=== PATIENT | female | born 1975 | race Caucasian/White ===

== ENCOUNTER 2017-05-17 15:27 | Emergency (ER) | payer MEDICAID ==
[~2017-05-17] VITALS: Ht 160 cm; Wt 115.5 kg
[~2017-05-17 15:27] MED LIST: ACYCLOVIR800 MG PO; BACTRIM DS1 TAB PO; IMITREX25 MG PO; LEVOTHYROXIN50 MCG; LEVOTHYROXIN50 MCG PO; LORTAB 10-325 M1 TAB PO; LORTAB5 PO; MEDDOSEPAK PO; NAPROSYN500 MG PO; NO; NO HOME MEDS; PENICILLN VK500 MG PO; PERCOCET 5/325M1 TAB PO; PHENERGAN25 MG/TAB PO; ULTRAM50 MG PO
[2017-05-17] MEDS ORDERED: NAPROSYN500 MG PO (17:05)
[2017-05-17 17:12] VITALS: BP 121/79
== END 2017-05-17 17:12 | disposition home or self-care (01) | DRG 563 ==
LOC: ED 15:27
DX: S53.401A Unspecified sprain of right elbow, initial encounter (principal); X50.0XXA Overexertion from strenuous movement or load, initial encounter; Y93.H9 Activity, other involving exterior property and land maintenance, building and construction; Y92.007 Garden or yard of unspecified non-institutional (private) residence as the place of occurrence of the external cause

== ENCOUNTER 2017-09-11 18:12 | Emergency (ER) | payer MEDICAID ==
[~2017-09-11] VITALS: Ht 160 cm; Wt 115.0 kg
[2017-09-11 19:09] LABS: HEMATOCRIT 43.6 % (37.0-47.0); HEMOGLOBIN 14.6 g/dl (12.0-16.0); IMMATURE GRANULOCYTES 0.4 % (0.0-1.0); MEAN CELL VOLUME 95.6 fL CALC (80.0-100.0); MEAN CORPUSCULAR HGB CONC 33.5 g/L CALC (32.0-36.0); NEUT# 4.89 thou/uL (2.00-7.15); RED BLOOD COUNT 4.56 mill/uL (4.20-5.60); RED CELL DISTRI WIDTH 12.8 % (11.5-15.5)
[2017-09-11 19:30] LABS: ANION GAP 16 (6-22 (CALC)); BUN 16 mg/dL (7-17); BUN/CREATININE RATIO 25 (12-20 (CALC)); CALCIUM 9.4 mg/dL (8.4-10.2); CARBON DIOXIDE 23 mmol/l (22-30); CHLORIDE 107 mmol/l (95-108); CREATININE 0.6 mg/dL (0.5-1.0); GFR > 60 ML/MIN (>=60 (CALC)); GFR FOR AFR.AMER. > 60 ML/MIN (>=60 (CALC)); GLUCOSE 125 mg/dL (65-105); POTASSIUM 4.1 mmol/l (3.5-5.1); SODIUM 142 mmol/l (137-146)
[2017-09-11] MEDS ORDERED: MOTRIN400 MG PO (22:10)
[2017-09-11 22:32] VITALS: BP 150/82
== END 2017-09-11 22:32 | disposition home or self-care (01) | DRG 607 ==
LOC: ED 18:12
PROVIDERS: Family Medicine
DX: R22.0 Localized swelling, mass and lump, head (principal); H53.9 Unspecified visual disturbance; H57.11 Ocular pain, right eye; R50.9 Fever, unspecified; Y04.2XXA Assault by strike against or bumped into by another person, initial encounter; Y92.89 Other specified places as the place of occurrence of the external cause
CPT/HCPCS: Q9967

== ENCOUNTER 2018-12-28 19:01 | Emergency (ER) | payer OTHER ==
[~2018-12-28] VITALS: Ht 160 cm; Wt 122.0 kg
[~2018-12-28 19:01] MED LIST changes: +MOTRIN400 MG PO
[2018-12-28] MEDS ORDERED: METFORMIN500 MG PO (19:15)
[2018-12-28 20:02] LABS: HEMATOCRIT 42.2 % (37.0-47.0); HEMOGLOBIN 14.1 g/dl (12.0-16.0); IMMATURE GRANULOCYTES 0.6 % (0.0-5.0); MEAN CELL VOLUME 94.2 fL CALC (80.0-100.0); MEAN CORPUSCULAR HGB 31.5 pG CALC (26.0-32.0); MEAN CORPUSCULAR HGB CONC 33.4 g/L CALC (32.0-36.0); NEUT# 9.4 thou/uL (2.00-7.15); RED BLOOD COUNT 4.48 mill/uL (4.20-5.60); RED CELL DISTRI WIDTH 12.9 % (11.5-15.5)
[2018-12-28 20:08] LABS: ANION GAP 14 (6-22 (CALC)); BUN 13 mg/dL (7-17); BUN/CREATININE RATIO 31 (12-20 (CALC)); CARBON DIOXIDE 19 mmol/l (22-30); CHLORIDE 108 mmol/l (95-108); CREATININE 0.4 mg/dL (0.5-1.0); GFR > 60 ML/MIN (>=60 (CALC)); GFR FOR AFR.AMER. > 60 ML/MIN (>=60 (CALC)); POTASSIUM 4.4 mmol/l (3.5-5.1); SODIUM 136 mmol/l (137-146)
[2018-12-28] MEDS ORDERED: BACTRIM DS1 TAB PO (20:46)
[2018-12-28] MEDS ORDERED: KEFLEX500 M1 PO (20:46)
[2018-12-28] MEDS ORDERED: VOLTAREN - GENE75 MG PO (20:46)
[2018-12-28] MEDS ORDERED: TRAMADOL HCL50 MG PO (20:46)
[2018-12-28 21:00] VITALS: BP 139/74
== END 2018-12-28 21:00 | disposition home or self-care (01) ==
LOC: ED 19:01
PROVIDERS: Family Medicine
DX: L03.114 Cellulitis of left upper limb (principal); E11.9 Type 2 diabetes mellitus without complications; F17.210 Nicotine dependence, cigarettes, uncomplicated

== ENCOUNTER 2019-08-04 16:05 | Emergency (ER) | payer OTHER ==
[~2019-08-04] VITALS: Ht 160 cm; Wt 120.5 kg
[~2019-08-04 16:05] MED LIST changes: +KEFLEX500 M1 PO; +METFORMIN500 MG PO; +TRAMADOL HCL50 MG PO; +VOLTAREN - GENE75 MG PO
[2019-08-04] MEDS ORDERED: PRAVASTATIN40 MG PO (18:02)
[2019-08-04] MEDS ORDERED: SERTRALINE50 MG PO (18:02)
[2019-08-04] MEDS ORDERED: HYDROXYZ HCL25 MG PO (18:03)
[2019-08-04] MEDS ORDERED: TESSALON PERLE100 MG PO (18:06)
[2019-08-04 18:15] VITALS: BP 141/79
== END 2019-08-04 18:15 | disposition home or self-care (01) ==
LOC: ED 16:05
DX: R09.81 Nasal congestion (principal); H92.01 Otalgia, right ear; R05 Cough; E11.9 Type 2 diabetes mellitus without complications; F17.210 Nicotine dependence, cigarettes, uncomplicated; Z79.84 Long term (current) use of oral hypoglycemic drugs

== ENCOUNTER 2019-11-23 12:36 | Observation (INO) | payer SELFPAY ==
[~2019-11-23] VITALS: Ht 160 cm; Wt 116.0 kg
[~2019-11-23 12:36] MED LIST changes: +HYDROXYZ HCL25 MG PO; +PRAVASTATIN40 MG PO; +SERTRALINE50 MG PO; +TESSALON PERLE100 MG PO
--- NOTE | 2019-11-23 12:58 | NUR ---
PT TO ROOM FOR EXAM
--- NOTE | 2019-11-23 13:00 | NUR ---
PT ASSESSED. PT REPORT RECTAL ABCESS GETTING WORSE TODAY. PT STANDING AND PACING DUE TO PAIN CAUSED BY SITTING. PT AO X 3. SKIN PINK WARM AND DRY. NO CARDIAC OR RESPIRATORY COMPLAINTS.
[2019-11-23 13:24] LABS: HEMATOCRIT 42.7 % (37.0-47.0); HEMOGLOBIN 13.9 g/dl (12.0-16.0); IMMATURE GRANULOCYTES 0.7 % (0.0-5.0); MEAN CELL VOLUME 85.4 fL CALC (80.0-100.0); MEAN CORPUSCULAR HGB 27.8 pG CALC (26.0-32.0); MEAN CORPUSCULAR HGB CONC 32.6 g/dL CAL (32.0-36.0); NEUT# 9.77 thou/uL (2.00-7.15); RED CELL DISTRI WIDTH 11.9 % (11.5-15.5)
[2019-11-23 13:37] LABS: ALBUMIN 4.5 g/dL (3.2-5.0); ANION GAP 19 (6-22 (CALC)); BILIRUBIN, TOTAL 0.8 mg/dL (0.0-1.4); BUN 12 mg/dL (7-17); BUN/CREATININE RATIO 26 (12-20 (CALC)); CARBON DIOXIDE 21 mmol/l (22-30); CHLORIDE 101 mmol/l (95-108); CREATININE 0.4 mg/dL (0.5-1.0); GFR > 60 ML/MIN (>=60 (CALC)); GFR FOR AFR.AMER. > 60 ML/MIN (>=60 (CALC)); SGOT/AST 32 u/l (14-36); SODIUM 137 mmol/l (137-146); TOTAL PROTEIN 7.9 g/dL (6.3-8.2)
[2019-11-23 13:51] LABS: ALKALINE PHOSPHATASE 111 u/l (38-126)
--- NOTE | 2019-11-23 14:03 | NUR ---
PT MEDICATED FOR PAIN. TAKEN VIA WHEELCHAIR TO XRAY
--- NOTE | 2019-11-23 14:18 | NUR ---
REPORT GIVEN TO TAM SIBLEY. MED SURG
--- NOTE | 2019-11-23 14:25 | NUR ---
PT TRANSPORTED VIA STRETCHER TO MED SURG. ANTIBIOTIC INFUSING
[2019-11-23 15:28] VITALS: BP 139/63
--- NOTE | 2019-11-23 19:19 | NUR ---
REPORT FROM TAM SIBLEY. PT NOTED LAYING ON LEFT SIDE IN BED. NO APPARENT DISTRESS NOTED. PT ALERT AND ORIENTED. PT C/O PERIRECTAL PAIN, PT JUST MEDICATED AND HEAT PACK PROVIDED PRIOR TO SHIFT CHANGE. DISCUSSED POC AND NPO AFTER MIDNIGHT. PT VERBALIZED UNDERSTANDING. IV SITE APPEARS HEALTHY. PT DENIES ANY CURRENT WANTS OR NEEDS. CALL LIGHT WITHIN REACH. WILL CONTINUE TO MONITOR.
--- NOTE | 2019-11-23 20:10 | NUR ---
PT C/O SHARP PAIN IN RECTAL AREA 9-10 AND 10-10 WITH MOVEMENT. PT IS TEARFUL AND CRYING. NO RELIEF FROM APAP, REPOSITIONING, COLD, OR WARM PACKS. ANUS ASSESSED, NO APPARENT OPENING NOTED, EDEMA AND SEROUS DRAINAGE NOTED. EQUIPMENT CLEANER PHYSICIAN NOTIFIED AND ORDERS RECEIVED FOR TORADOL 15MG Q6H PRN FOR BREAKTHROUGH PAIN AND CONTINUE WITH PRN MORPHINE ORDERED. INFORMED PT, WILL MEDICATED WHEN MEDICATION PROFILED AND CONTINUE TO MONITOR.
--- NOTE | 2019-11-23 21:17 | NUR ---
PT RESTING IN BED, APPEARS MORE RELAXED AND COMFORTABLE NOW. PT STATES PAIN 7-10. SNACK PROVIDED UPON REQUEST. CALL LIGHT WITHIN REACH. WILL CONTINUE TO MONITOR.
[2019-11-24] VITALS (12 sets, daily range): BP systolic 117–155; BP diastolic 60–94
--- NOTE | 2019-11-24 00:40 | NUR ---
PT RESTING IN BED ON RIGHT SIDE. PT STATES PAIN 9-10 IN RECTAL AREA. ASSISTED PT UP TO USE BATHROOM PT VOIDED 300 ML DARK YELLOW URINE. AMBULATED TO BATHROMM WITH STEADY GAIT. MEDICATED WITH PO APAP AT THIS TIME AND ICE PACK PROVIDED. PT DENIES ANY OTHER WANTS OR NEEDS. DISCUSSED PAIN MEDICATIONS AVAILABLE DUE TIMES. PT VERBALIZED UNDERSTANDING. CALL LIGHT WITHIN REACH. WILL CONTINUE TO MONITOR.
--- NOTE | 2019-11-24 03:06 | NUR ---
PT RESTING IN BED, LAYING ON LEFT SIDE. NO APPARENT DISTRESS NOTED. CALL LIGHT WITHIN REACH. WILL CONTINUE TO MONITOR.
[2019-11-24 04:43] LABS: IMMATURE GRANULOCYTES 0.6 % (0.0-5.0); MEAN CELL VOLUME 86.1 fL CALC (80.0-100.0); MEAN CORPUSCULAR HGB 27.3 pG CALC (26.0-32.0); MEAN CORPUSCULAR HGB CONC 31.7 g/dL CAL (32.0-36.0); NEUT# 6.74 thou/uL (2.00-7.15); RED BLOOD COUNT 4.1 mill/uL (4.20-5.60); RED CELL DISTRI WIDTH 11.9 % (11.5-15.5)
[2019-11-24 04:45] LABS: HEMATOCRIT 35.3 % (37.0-47.0); HEMOGLOBIN 11.2 g/dl (12.0-16.0)
[2019-11-24 04:49] LABS: ANION GAP 10 (6-22 (CALC)); BUN 12 mg/dL (7-17); BUN/CREATININE RATIO 31 (12-20 (CALC)); CARBON DIOXIDE 21 mmol/l (22-30); CHLORIDE 106 mmol/l (95-108); CREATININE 0.4 mg/dL (0.5-1.0); GFR > 60 ML/MIN (>=60 (CALC)); GFR FOR AFR.AMER. > 60 ML/MIN (>=60 (CALC)); POTASSIUM 3.7 mmol/l (3.5-5.1); SODIUM 134 mmol/l (137-146)
--- NOTE | 2019-11-24 08:00 | NUR ---
CHANGE OF SHIFT REPORT RECEIVED FROM TOÑITO CAMPA. PT SITTING UP IN BED. PT IS ABLE TO MAKE NEEDS KNOWN
--- NOTE | 2019-11-24 12:00 | NUR ---
PT OFF FLOOR TO OR
--- NOTE | 2019-11-24 14:18 | NUR ---
patient back from OR. post surgery protocol in place. pt stable; food and fluid offered and accepted by pt. comic writer will continue to monitor
--- NOTE | 2019-11-24 16:00 | NUR ---
PT RESTING COMFORTABLY. IV REPLACED. NEW IV #22 ON RIGHT FOREARM. PT IS ABLE TO MAKE NEEDS KNOWN
--- NOTE | 2019-11-24 20:15 | NUR ---
PT. HAD VOMITED A SMALL AMOUNT, PROVIDED WITH ICE CHIPS AND DIET [place], WILL REASSESS. DRY GAUZE CHANGED TO PERIANAL INCISION SITE PER ORDER, COLD PACK APPLIED. ASSESSMENT COMPLETED. RAFAT HOSE IN PLACE TO BLE. EDUCATED ON INCENTIVE SPIROMETER AND PULLING 1000; GOAL SET TO 1250. IV SITE PATENT AND ORDERED IVF INFUSING. CALL LIGHT IS IN REACH. WILL CONTINUE TO MONITOR.
--- NOTE | 2019-11-24 21:22 | NUR ---
PT. C/O PERIANAL PAIN 03/29 AND MEDICATED WITH ORDERED MORPHINE, WILL REASSESS. PT. REPORTING NAUSEA HAS SUBSIDED. THAI ICE PROVIDED. ENCOURAGED TO CALL FOR ANY NEEDS. CALL LIGHT IS IN REACH.
--- NOTE | 2019-11-25 00:19 | NUR ---
PT. C/O PERIRECTAL PAIN 02/26 AND MEDICATED WITH ORDERED PRN MORPHINE AND COLD PACK PROVIDED. DENIES FURTER NEEDS. DRESSING CHECKED AND IN PLACE. ENCOURAGED TO CALL FOR ANY NEEDS. CALL LIGHT IS IN REACH.
--- NOTE | 2019-11-25 02:01 | NUR ---
PT. RESTING IN BED ON RIGHT SIDE WITH NO RESP. DISTRESS NOTED. DENIES NEEDS. CALL LIGHT IS IN REACH.
[2019-11-25 04:00] VITALS: BP 168/94
--- NOTE | 2019-11-25 05:32 | NUR ---
PT. MEDICATED FOR PHELPS AND NOÉ-ANAL PAIN (INCISIONAL SITE) AND MEDICATED WITH ORDERED PRN TORADOL PER ORDER AND PT'S REQUEST; WILL REASSESS. DRESSING CHANGED TO INCISION SITE WELL PER ORDER AND CLEANSED WITH NS. PT. TOLERATED WELL. COLD PACK PROVIDED. PO FLUIDS OFFERED. CALL LIGHT IS IN REACH.
--- NOTE | 2019-11-25 07:15 | NUR ---
CHANGE OF SHIFT REPORT RECEIVED FROM VLADIMIR BRIZUELA. PT SITTING UP IN BED, ABLE TO MAKE NEEDS KNOWN. CALL LIGHT WITHIN EASY REACH, BED IN LOWEST POSITION
[2019-11-25 08:00] VITALS: BP 151/80
--- NOTE | 2019-11-25 08:15 | NUR ---
TYLENOL GIVEN C/O 01/27 HEADACHE. HEALTH TECHNICAL WRITER WILL CONTINUE TO MONITOR
--- NOTE | 2019-11-25 09:00 | NUR ---
PT STATES HEADACHE RESOLVED. PT JUST CAME OUT OF THE SHOWER. DRESSING TO [employer] CARRIED OUT PER ORDER. PT TOLERATED PROCEDURE WELL
[2019-11-25] MEDS ORDERED: LORTAB5 PO (09:59)
[2019-11-25] MEDS ORDERED: AMARYL1 MG PO (09:59)
[2019-11-25] MEDS ORDERED: AMOX/K CLAV875 M1 PO (09:59)
--- NOTE | 2019-11-25 10:59 | NUR ---
IV SITE DISCONTINUED CATHETER INTACT. NO REDNESS OR EDEMA.
--- NOTE | 2019-11-25 11:10 | NUR ---
Discharge instructions given. Patient verbalizes understanding of same. Discharged in good condition via Ambulatory to Home with family. All belongings sent with pt.
== END 2019-11-25 11:14 | disposition home or self-care (01) | DRG 395 ==
LOC: ED 12:36 → ED-I 13:49 → ED 13:57 → MS2 13:58
PROVIDERS: Emergency Medicine; ADMIT Internal Medicine; ATTEND Internal Medicine
PROC: 0D9P3ZZ Drainage of Rectum, Percutaneous Approach (ICD-10-PCS; principal; 2019-11-24)
PROC: 3E0234Z Introduction of Serum, Toxoid and Vaccine into Muscle, Percutaneous Approach (ICD-10-PCS; 2019-11-24)
DX: K61.1 Rectal abscess (principal); E11.65 Type 2 diabetes mellitus with hyperglycemia; F17.200 Nicotine dependence, unspecified, uncomplicated; B96.20 Unspecified Escherichia coli [E. coli] as the cause of diseases classified elsewhere; Z79.84 Long term (current) use of oral hypoglycemic drugs; Z23 Encounter for immunization; Z91.19 Patient's noncompliance with other medical treatment and regimen
CPT/HCPCS: C9290; G0378; J0131; Q9967

== ENCOUNTER 2020-04-24 13:17 | Emergency (ER) | payer SELFPAY ==
[~2020-04-24] VITALS: Ht 160 cm; Wt 127.0 kg
[~2020-04-24 13:17] MED LIST changes: +AMARYL1 MG PO; +AMOX/K CLAV875 M1 PO
[2020-04-24] MEDS ORDERED: GLIPIZIDE5 MG PO (13:50)
[2020-04-24] MEDS ORDERED: PRAVASTATIN20 MG PO (13:51)
[2020-04-24] MEDS ORDERED: ALLEGRA180 MG PO (14:21)
[2020-04-24 15:00] VITALS: BP 141/76
== END 2020-04-24 15:00 | disposition home or self-care (01) | DRG 918 ==
LOC: ED 13:17
DX: T63.481A Toxic effect of venom of other arthropod, accidental (unintentional), initial encounter (principal); E11.9 Type 2 diabetes mellitus without complications; F17.210 Nicotine dependence, cigarettes, uncomplicated; Z79.84 Long term (current) use of oral hypoglycemic drugs

== ENCOUNTER 2020-12-15 19:24 | Emergency (ER) | payer SELFPAY ==
[~2020-12-15 19:24] MED LIST changes: +ALLEGRA180 MG PO; +GLIPIZIDE5 MG PO; +PRAVASTATIN20 MG PO
[2020-12-15] MEDS ORDERED: CELEBREX100 M1 PO (20:05)
[2020-12-15 20:24] VITALS: BP 174/84
== END 2020-12-15 20:24 | disposition home or self-care (01) | DRG 563 ==
LOC: ED 19:24
DX: S46.212A Strain of muscle, fascia and tendon of other parts of biceps, left arm, initial encounter (principal); E11.9 Type 2 diabetes mellitus without complications; F17.200 Nicotine dependence, unspecified, uncomplicated; X50.0XXA Overexertion from strenuous movement or load, initial encounter; Z79.84 Long term (current) use of oral hypoglycemic drugs